=== PATIENT | female | born 1935 | race Hispanic/Latino ===

== ENCOUNTER 2017-04-27 12:34 | Day surgery (SDC) | payer MEDICARE, OTHER ==
[2017-04-23 15:48] VITALS: BMI 20.5
[2017-04-27] MEDS ORDERED: Propofol 10 mg/ml Inj (20 ML) ONE (16:56)
[2017-04-27] MEDS ORDERED: Etomidate 20 mg/10ml Inj IV ONE (16:56)
[2017-04-27] MEDS ORDERED: Labetalol 5 mg/ml Inj 20ML ONE (17:27)
[2017-04-27] MEDS ORDERED: Sodium Chloride 0.9% 1,000 ML IV SCH (18:00)
[2017-04-27 18:49] VITALS: RESP 18; TEMP 98.3
[2017-04-27 19:10] VITALS: BP 168/72; PULSE 76; O2SAT 97
== END 2017-04-27 19:10 | disposition home or self-care (01) ==
LOC: ENDO 12:34
PROVIDERS: ATTEND Internal Medicine Gastroenterology
DX: K55.20 Angiodysplasia of colon without hemorrhage (principal); K21.0 Gastro-esophageal reflux disease with esophagitis; K44.9 Diaphragmatic hernia without obstruction or gangrene; K29.50 Unspecified chronic gastritis without bleeding; B96.81 Helicobacter pylori [H. pylori] as the cause of diseases classified elsewhere; K64.8 Other hemorrhoids
CPT/HCPCS: 43239; 45388; J2001; J2704; J3010; J7040 ×2